=== PATIENT | male | born 1990 | race African-American/Black ===

== ENCOUNTER 2017-09-09 07:31 | Emergency (ER) | payer SELFPAY ==
[~2017-09-09] VITALS: Ht 185.4 cm; Wt 132.7 kg
[2017-09-09 07:35] VITALS: BP 162/115; TEMP 97.9
[2017-09-09] MEDS ORDERED: RT ADVAIR 228 DISKUS IH (07:40)
[2017-09-09 08:51] VITALS: PULSE 72
== END 2017-09-09 08:52 | disposition home or self-care (01) ==
LOC: COL.ER 07:31
DX: M12.531 Traumatic arthropathy, right wrist (principal); J45.909 Unspecified asthma, uncomplicated; X50.3XXA Overexertion from repetitive movements, initial encounter; Y93.54 Activity, bowling

== ENCOUNTER 2021-03-14 17:04 | Emergency (ER) | payer MEDICAID ==
[~2021-03-14] VITALS: Ht 188 cm; Wt 140.9 kg
[~2021-03-14 17:04] MED LIST: RT ADVAIR 228 DISKUS IH
[2021-03-14 20:03] LABS: BASO # 0.1 (0.0-0.2); BASO % 0.9 % (0.0-2.0); EOS # 0.1 (0.0-0.7); EOS % 2.3 % (0-4.0); GRAN # 3.5 (1.4-6.5); GRAN % 61.6 % (42.2-75.2); HEMATOCRIT 42.9 % (42.0-52.0); HEMOGLOBIN 14.3 g/dl (13.5-18.0); LYMPH # 1.6 (1.2-3.4); LYMPH % 27.7 % (20.0-51.0); MEAN CELL VOLUME 92 fl (80.0-100.0); MEAN CORPUSCULAR HEMOGLOBIN 31 pg (27.0-31.0); MEAN CORPUSCULAR HGB CONC 33 g/dl (33.0-37.0); MEAN PLATELET VOLUME 11.3 fl (7.4-10.4); MONO # 0.4 (0.1-0.6); MONO % 6.8 % (1.7-9.3); PLATELET COUNT 245 K/mm3 (130-400); RED BLOOD COUNT 4.65 M/mm3 (4.20-5.60); REDCELL DISTRIBUTION WIDTH-CV 13.4 % (11.5-14.5)
[2021-03-14 20:20] LABS: ALBUMIN 4.4 gm/dL (3.5-5.0); BILIRUBIN,TOTAL 0.6 mg/dL (0.0-1.0); C-REACTIVE PROTEIN 1.1 mg/dL (0.0-0.9); CALCIUM 9.5 mg/dL (8.4-10.2); CREATININE, serum 1.22 (0.66-1.25); POTASSIUM 3.9 mmol/L (3.4-5.0); TOTAL PROTEIN 8.2 gm/dL (6.4-8.2)
[2021-03-14 21:10] VITALS: BP 159/96; PULSE 80; TEMP 98
== END 2021-03-14 21:10 | disposition home or self-care (01) ==
LOC: COL.ER 17:04
PROVIDERS: Nurse Practitioner
DX: R51.9 Headache, unspecified (principal); I10 Essential (primary) hypertension; J45.909 Unspecified asthma, uncomplicated; Z79.51 Long term (current) use of inhaled steroids
CPT/HCPCS: J1200; J1885; J2550; J2765; J7030